=== PATIENT | male | born 1995 | race African-American/Black ===

== ENCOUNTER 2019-08-13 03:21 | Emergency (ER) | payer MEDICAID ==
[~2019-08-13] VITALS: Ht 165.1 cm; Wt 69.0 kg
[~2019-08-13 03:21] MED LIST: CARB200T PO
[2019-08-13] MEDS ORDERED: IBUPROFEN 600MG TABLET PO STA (06:31)
[2019-08-13 07:46] LABS: CHLORIDE 105 mEq/L (98-107)
[2019-08-13 08:25] LABS: HEMATOCRIT. 44.9 % (42.0-52.0); MEAN CORPUSCULAR HEMOGLOBIN 32.3 pg (28.0-32.0); MEAN CORPUSCULAR VOLUME 96.4 fL (80.0-94.0); MEAN PLATELET VOLUME 8.6 fl (7.4-10.4); PLATELET 163 x1000/uL (130-400); RED BLOOD CELL COUNT 4.66 mill/uL (4.7-6.1); RED CELL DISTRIBUTION WIDTH 13.2 % (11.6-14.6)
[2019-08-13 08:59] LABS: PLATELET ESTIMATE NORMAL
[2019-08-13] MEDS ORDERED: ACETAMINOPHEN 325MG TABLET PO ONE (09:30)
[2019-08-13] MEDS ORDERED: LIDOCAINE 5% PATCH TOP STA (10:41)
[2019-08-13 12:10] VITALS: BP 110/75
== END 2019-08-13 12:10 | disposition home or self-care (01) ==
LOC: ER 03:21
DX: M79.601 Pain in right arm (principal); G40.909 Epilepsy, unspecified, not intractable, without status epilepticus; Z88.8 Allergy status to other drugs, medicaments and biological substances
CPT/HCPCS: 36415; 73030; 73060; 99284